=== PATIENT | male | born 1950 | race Caucasian/White ===

== ENCOUNTER 2018-02-09 23:08 | Emergency (ER) | payer MEDICARE, BC ==
[~2018-02-09] VITALS: Ht 180.3 cm; Wt 86.2 kg
[~2018-02-09 23:08] MED LIST: BENICAR5 MG PO; CRESTOR10 MG PO; KEFLEX500 MG PO; TYLENOL WITH C1 EACH PO
[2018-02-09] MEDS ORDERED: ALBUTEROL/IPRATROPIUM 3 ML NEB NEB ONE (23:30)
[2018-02-10] MEDS ORDERED: ALBUTEROL/IPRATROPIUM 3 ML NEB NEB ONE (00:30)
[2018-02-10 01:46] VITALS: BP 146/86
== END 2018-02-10 01:44 | disposition home or self-care (01) ==
LOC: FSED 23:08
DX: J20.8 Acute bronchitis due to other specified organisms (principal)
CPT/HCPCS: 71046; 80048; 82553; 83880; 84484; 85025; 93005; 99283

== ENCOUNTER 2018-10-29 11:28 | Emergency (ER) | payer MEDICARE, BC ==
[~2018-10-29] VITALS: Ht 180.3 cm; Wt 88.5 kg
[2018-10-29] MEDS ORDERED: SODIUM CHLORIDE 0.9% 1000ML 1,000 ML IV STA (11:43)
[2018-10-29 12:08] LABS: BASOPHILS # (AUTO) 0.1 (0.0-0.1); BASOPHILS % 1.1 % (0.0-1.0); EOSINOPHILS # (AUTO) 0.1 (0.0-0.4); EOSINOPHILS % 1.5 % (0.0-6.0); HEMATOCRIT 43.3 % (38.2-49.6); HEMOGLOBIN 15.2 g/dL (14.0-18.0); LYMPHOCYTES # (AUTO) 1.2 (1.0-3.2); LYMPHOCYTES % 25.6 % (18.0-39.1); MEAN CORPUSCULAR HGB CONC 35.1 g/dL (31-35); MEAN CORPUSCULAR VOLUME 88.2 fL (81-99); MONOCYTES # (AUTO) 0.4 (0.2-0.8); NEUTROPHILS % 63.6 % (38.7-80.0); PLATELET COUNT 175 x10e3/uL (140-360); RED BLOOD COUNT 4.91 x10e6/uL (4.3-5.7); RED CELL DISTRIBUTION WIDTH 12.4 % (11.7-14.4)
[2018-10-29 12:19] LABS: INR 0.89; PROTHROMBIN TIME 12.9 seconds (11.9-14.5)
[2018-10-29 12:20] LABS: PARTIAL THROMBOPLASTIN TIME 28.9 seconds (23.8-35.5)
[2018-10-29 12:24] LABS: ANION GAP 14.4 mmol/L (8-16); BLOOD UREA NITROGEN 15 mg/dL (7-26); BUN/CREATININE RATIO 15 (6-25); CALCIUM 9.8 mg/dL (8.4-10.2); CARBON DIOXIDE 28 mmol/L (22-29); CHLORIDE 106 mmol/L (98-107); CREATININE, SERUM 0.97 mg/dL (0.72-1.25); EST GLOMERULAR FILTRATION RATE > 60 ML/MIN (60-); GLUCOSE 120 mg/dL (74-118); POTASSIUM 4.4 mmol/L (3.5-5.1); SODIUM 144 mmol/L (136-145)
[2018-10-29] MEDS ORDERED: IOPAMIDOL 370 MG/ML 200 ML INFUS..BTL INJ ONE (12:35)
[2018-10-29] MEDS ORDERED: SODIUM CHLORIDE 0.9% 250ML 250 ML ONE (12:36)
[2018-10-29 12:39] LABS: BILIRUBIN,URINE NEGATIVE (NEGATIVE); CLARITY,URINE HAZY (CLEAR); COLOR,URINE YELLOW (YELLOW); KETONES,URINE NEGATIVE (NEGATIVE); LEUKOCYTE ESTERASE ,URINE NEGATIVE (NEGATIVE); NITRITE,URINE NEGATIVE (NEGATIVE); PROTEIN,URINE DIPSTICK NEGATIVE (NEGATIVE); URINE UROBILINOGEN 4 mg/dL (0.2 - 1)
[2018-10-29 12:48] LABS: RBC,URINE >50 /HPF (0-5); WBC,URINE (MAN) 0-5 /HPF (0-5)
--- NOTE | 2018-10-29 14:24 | Diagnostic Imaging Report ---
EXAM: CT abdomen and pelvis without and with contrast INDICATION: Evaluate etiology of hematuria COMPARISON: None. TECHNIQUE: Abdomen and pelvis were scanned in prone position without and with contrast. Delayed phase imaging obtained. Coronal and sagittal reformations were obtained. Hematuria protocol. IV CONTRAST: 150 mL of Isovue 370 ORAL CONTRAST: Water RADIATION DOSE: Total DLP: 1427.9 mGy*cm COMPLICATIONS: None FINDINGS: LINES and TUBES: None. LOWER THORAX: There is a 4 mm mixed groundglass solid nodule in the right lower lobe on series 6, image 4. The solid component measures 3 mm. HEPATOBILIARY: No focal hepatic lesions. No biliary ductal dilation. GALLBLADDER: No radio-opaque stones or sludge. No wall thickening. SPLEEN: No splenomegaly. Multiple splenic granulomas. PANCREAS: No focal masses or ductal dilatation. ADRENALS: No adrenal nodules KIDNEYS/URETERS: Kidneys enhance symmetrically. No hydronephrosis. No solid mass lesions. The majority of the ureters are opacified and demonstrate no specific evidence of urothelial lesion. There are punctate 1 mm bilateral nonobstructing renal stones, for example in the mid pole on the right on series 3, image 75 and image 82 and in the left midpole on image 84. Subcentimeter right renal hypodensities are too small to characterize but likely represent cysts. GI TRACT: No abnormal distention, wall thickening, or evidence of bowel obstruction. Appendix is not visualized. Small hiatal hernia. PELVIS: The bladder is opacified on delayed images and demonstrates no evidence of urothelial lesion. LYMPH NODES: No lymphadenopathy. VESSELS: Scattered atherosclerotic changes of the abdominal aorta and branch vessels. PERITONEUM / RETROPERITONEUM: No free air or fluid. BONES AND SOFT TISSUES: No acute bony findings or suspicious lytic or blastic lesions. Post surgical clips and the lower anterior abdominal wall. IMPRESSION: No evidence of renal mass, stone, or urothelial lesion. A 4 mm mixed solid ground glass nodule in the right lower lobe. A non-urgent chest CT is suggested for further evaluation. Signed by: Dr. Arianne Cade MD on 10/29/2018 2:21 PM
[2018-10-29 14:52] VITALS: BP 143/78
== END 2018-10-29 14:55 | disposition home or self-care (01) ==
LOC: ER 11:28
DX: R31.0 Gross hematuria (principal); Z85.46 Personal history of malignant neoplasm of prostate
CPT/HCPCS: 36415; 74178; 80048; 81001; 84152; 85025; 85610; 85730; 87086; 99284; J7030; J7050; Q9967

== ENCOUNTER → 2018-12-16 | Outpatient (CLI) | payer MEDICARE, BC ==
[~2018-12-16] MED LIST changes: +IOPAMIDOL 370 MG/ML 200 ML INFUS..BTL INJ ONE; +SODIUM CHLORIDE 0.9% 50ML 50 ML ONE
[2018-12-16 16:51] LABS: BLOOD UREA NITROGEN 16 mg/dL (7-26); BUN/CREATININE RATIO 20 (6-25); CREATININE, SERUM 0.82 mg/dL (0.72-1.25); EST GLOMERULAR FILTRATION RATE > 60 ML/MIN (60-)
--- NOTE | 2018-12-16 18:02 | Diagnostic Imaging Report ---
EXAM: CT Chest WITH contrast 12/16/2018 4:00 PM INDICATION: ^PULMONARY NODULE COMPARISON: CT abdomen and pelvis 10/29/2018. TECHNIQUE: Chest was scanned utilizing a multidetector helical scanner from the lung apex through the level of the adrenal glands without administration of IV contrast. Coronal and sagittal reformations were obtained. Routine protocol was performed. IV CONTRAST: 100 mL of Isovue 370 COMPLICATIONS: None RADIATION DOSE: Total DLP: 574.12 mGy*cm Estimated effective dose: (DLP x 0.014 x size factor) mSv CTDIvol has been reviewed. It is below the limits set by the Radiation Protocol Committee (RPC). FINDINGS: LINES/ TUBES: None. LUNGS AND AIRWAYS: Images are measured on series 3: Left lower lobe groundglass nodule (image 102): 3.7 mm (12/16/2018). 3.5 mm (10/29/2018). Scattered calcified granulomas in the right upper lobe (image 61), right middle lobe (image 96). Previously visualized right lower lobe nodule is not visualized on this exam. Airways are normal. PLEURA: The pleural spaces are clear. HEART AND MEDIASTINUM: The thyroid gland is normal. No mediastinal, hilar or axillary lymphadenopathy. The heart is normal in size. There is no pericardial effusion. UPPER ABDOMEN: Distal esophageal wall thickening. Calcified granuloma in the spleen. BONES: The visualized bony thorax is within normal limits. SOFT TISSUES: Unremarkable. IMPRESSION: 1. 3.7 mm ground glass nodule in the left lower lobe. 2. Previous right lower lobe nodule is not identified on this exam. 3. Distal esophageal wall thickening. Correlate for esophagitis. 4. Findings of old granulomatous disease involving the lung and spleen. Signed by: Dr. Herson Bai M.D. on 12/16/2018 5:58 PM
== END ==
LOC: CT 15:52
PROVIDERS: ATTEND Family Medicine
DX: R91.1 Solitary pulmonary nodule (principal); R91.8 Other nonspecific abnormal finding of lung field
CPT/HCPCS: 36415; 71260; 82565; 84520; Q9967

== ENCOUNTER 2019-03-03 12:26 | Emergency (ER) | payer MEDICARE, BC ==
[~2019-03-03] VITALS: Ht 180.3 cm; Wt 88.5 kg
[~2019-03-03 12:26] MED LIST changes: -IOPAMIDOL 370 MG/ML 200 ML INFUS..BTL INJ ONE; -SODIUM CHLORIDE 0.9% 50ML 50 ML ONE
--- OUTSIDE RECORDS SUMMARY | 2019-03-03 12:30 | XMS REPORT ---
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 Allergies, Adverse Reactions, Alerts This patient has no known allergies or adverse reactions. Medications This patient has no known medications. Results Test Description Test Time Test Comments Text Results Atomic Results Result Comments CT CHEST W 2018-12-16 17:48:00 [place] [address] Patient Name: LON MAGAÑA MR #: [id number] : 1950 Age/Sex: 68/M Req #: [id number] Adm Physician: Ordered by: NEIDA MARTINEZ DO Report #: [id number] Location: CT Room/Bed: Procedure: [id number] CT/CT CHEST W Exam Date: 12/16/18 Exam Time: 1655 REPORT STATUS: Signed EXAM: CT Chest WITH contrast 12/16/2018 4:00 PM INDICATION: PULMONARY NODULE COMPARISON: CT abdomen and pelvis 10/29/2018. TECHNIQUE: Chest was scanned utilizing a multidetector helical scanner from the lung apex through the level of the adrenal glands without administration of IV contrast. Coronal and sagittal reformations were obtained. Routine protocol was performed. IV CONTRAST: 100 mL of Isovue 370 COMPLICATIONS: None RADIATION DOSE: Total DLP: 574.12 mGy*cm Estimated effective dose: (DLP x 0.014 x size factor) mSv CTDIvol has been reviewed. It is below the limits set by the Radiation Protocol Committee (RPC). FINDINGS: LINES/ TUBES: None. LUNGS AND AIRWAYS: Images are measured on series 3: Left lower lobe groundglass nodule (image 102): 3.7 mm (12/16/2018). 3.5 mm (10/29/2018). Scattered calcified granulomas in the right upper lobe (image 61), right middle lobe (image 96). Previously visualized right lower lobe nodule is not visualized on this exam. Airways are normal. PLEURA: The pleural spaces are clear. HEART AND MEDIASTINUM: The thyroid gland is normal. No mediastinal, hilar or axillary lymphadenopathy. The heart is normal in size. There is no pericardial effusion. UPPER ABDOMEN: Distal esophageal wall thickening. Calcified granuloma in the spleen. BONES: The visualized bony thorax is within normal limits. SOFT TISSUES: Unremarkable. IMPRESSION: 1. 3.7 mm ground glass nodule in the left lower lobe. 2. Previous right lower lobe nodule is not identified on this exam. 3. Distal esophageal wall thickening. Correlate for esophagitis. 4. Findings of old granulomatous disease involving the lung and spleen. Signed by: Dr. Abiola Chan M.D. on 12/16/2018 5:58 PM Dictated By: ABIOLA CHAN MD 57 Transcribed By: TAYLOR on 12/16/181757 COPY TO: NEIDA MARTINEZ DO CT ABDOMEN/PELVIS WO 2018-10-29 14:09:00 [place] [address] Patient Name: LON MAGAÑA MR #: [id number] : 1950 Age/Sex: 67/M Req #: [id number] Adm Physician: Ordered by: LORY AGUILAR MD Report #: [id number] Location: Room/Bed: Procedure: [id number] CT/CT ABDOMEN/PELVIS WOW Exam Date: 10/29/18 Exam Time: 1257 REPORT STATUS: Signed EXAM: CT abdomen and pelvis without and with contrast INDICATION: Evaluate etiology of hematuria COMPARISON: None. TECHNIQUE: Abdomen and pelvis were scanned in prone position without and with contrast. Delayed phase imaging obtained. Coronal and sagittal reformations were obtained. Hematuria protocol. IV CONTRAST: 150 mL of Isovue 370 ORAL CONTRAST: Water RADIATION DOSE: Total DLP: 1427.9 mGy*cm COMPLICATIONS: None FINDINGS: LINES and TUBES: None. LOWER THORAX: There is a 4 mm mixed groundglass solid nodule in the right lower lobe on series 6, image 4. The solid component measures 3 mm. HEPATOBILIARY: No focal hepatic lesions. No biliary ductal dilation. GALLBLADDER: No radio-opaque stones or sludge. No wall thickening. SPLEEN: No splenomegaly. Multiple splenic granulomas. PANCREAS: No focal masses or ductal dilatation. ADRENALS: No adrenal nodules KIDNEYS/URETERS: Kidneys enhance symmetrically. No hydronephrosis. No solid mass lesions. The majority of the ureters are opacified and demonstrate no specific evidence of urothelial lesion. There are punctate 1 mm bilateral nonobstructing renal stones, for example in the mid pole on the right on series 3, image 75 and image 82 and in the left midpole on image 84. Subcentimeter right renal hypodensities are too small to characterize but likely represent cysts. GI TRACT: No abnormal distention, wall thickening, or evidence of bowel obstruction. Appendix is not visualized. Small hiatal hernia. PELVIS: The bladder is opacified on delayed images and demonstrates no evidence of urothelial lesion. LYMPH NODES: No lymphadenopathy. VESSELS: Scattered atherosclerotic changes of the abdominal aorta and branch vessels. PERITONEUM / RETROPERITONEUM: No free air or fluid. BONES AND SOFT TISSUES: No acute bony findings or suspicious lytic or blastic lesions. Post surgical clips and the lower anterior abdominal wall. IMPRESSION: No evidence of renal mass, stone, or urothelial lesion. A 4 mm mixed solid ground glass nodule in the right lower lobe. A non-urgent chest CT is suggested for further evaluation. Signed by: Dr. Gill Castro MD on 10/29/2018 2:21 PM Dictated By: GILL CASTRO MD [id number] Transcribed By: TAYLOR on 10/29/18 142 COPY TO: LORY AGUILAR MD
[2019-03-03] MEDS: KETOROLAC TROMETHAMINE 60 MG/2 ML VIAL IM ONE ×2 (13:21→14:09)
--- NOTE | 2019-03-03 14:04 | NUR ---
CHARTED THAT TORADOL WAS GIVEN IN ERROR. PT REFUSED TORADOL INJECTION. PT STATED HE DID NOT FEEL HE NEEDED PAIN MEDICATION AT THIS TIME. MEDICATION WASTED WITH
[2019-03-03 14:13] VITALS: BP 141/82
== END 2019-03-03 14:16 | disposition home or self-care (01) ==
LOC: FSED 12:26
DX: M54.6 Pain in thoracic spine (principal); E78.00 Pure hypercholesterolemia, unspecified
CPT/HCPCS: 84484; 99283; J1885

== ENCOUNTER → 2020-11-01 | Outpatient (CLI) | payer OTHER ==
[~2020-11-01] MED LIST changes: +COVID-19 VACC, MRNA(MODERNA)/PF 100 MCG/0.5 ML VIAL IM ONE
== END ==
LOC: VACCPMC 16:00
DX: Z23 Encounter for immunization (principal); Z20.822 Contact with and (suspected) exposure to COVID-19

== ENCOUNTER → 2020-12-02 | Outpatient (CLI) | payer OTHER | END | DRG 951 | LOC: VACCPMC 09:05 | DX: Z23 Encounter for immunization (principal); Z20.822 Contact with and (suspected) exposure to COVID-19 | CPT/HCPCS: 0012A; 91301 ==

== ENCOUNTER → 2025-01-19 | Outpatient (REF) | payer MEDICARE, BC ==
[~2025-01-19] MED LIST changes: -COVID-19 VACC, MRNA(MODERNA)/PF 100 MCG/0.5 ML VIAL IM ONE; +IOPAMIDOL 370 MG/ML 100 ML INFUS..BTL INJ ONE
[2025-01-19 10:13] LABS: CREATININE, SERUM 1.01 mg/dL (0.72-1.25)
== END ==
LOC: CT 09:32
PROVIDERS: ATTEND Internal Medicine Cardiovascular Disease
DX: I71.21 Aneurysm of the ascending aorta, without rupture (principal); I71.23 Aneurysm of the descending thoracic aorta, without rupture; I48.0 Paroxysmal atrial fibrillation; E78.5 Hyperlipidemia, unspecified; J47.9 Bronchiectasis, uncomplicated; I27.81 Cor pulmonale (chronic)
CPT/HCPCS: 36415; 71275; 82565; 84520; Q9967